=== PATIENT | female | born 1995 | race Caucasian/White ===

== ENCOUNTER 2016-12-23 17:52 | Emergency (ER) | payer SELFPAY ==
[~2016-12-23] VITALS: Ht 162.6 cm; Wt 51.8 kg
[2016-12-23 17:55] VITALS: BP 134/84
== END 2016-12-23 19:23 | disposition home or self-care (01) ==
LOC: ED 18:45
DX: K02.9 Dental caries, unspecified (principal)
CPT/HCPCS: 99283

== ENCOUNTER 2019-02-25 14:21 | Emergency (ER) | payer SELFPAY ==
[~2019-02-25] VITALS: Ht 167.6 cm; Wt 67.0 kg
[2019-02-25 14:34] VITALS: BP 125/83
--- NOTE | 2019-02-25 15:34 | NUR ---
Patient/Caregiver given discharge instructions and they have confirmed that they understand the instructions. Patient ambulatory with steady gait.
== END 2019-02-25 15:36 | disposition home or self-care (01) ==
LOC: ED 15:30
DX: K08.89 Other specified disorders of teeth and supporting structures (principal); F17.210 Nicotine dependence, cigarettes, uncomplicated
CPT/HCPCS: 99283

== ENCOUNTER 2019-05-13 13:39 | Emergency (ER) | payer MEDICAID ==
[~2019-05-13] VITALS: Ht 170.2 cm; Wt 64.7 kg
[2019-05-13] MEDS ORDERED: SODIUM CHLORIDE FLUSH 10ML SYR IVF ONE (14:30)
[2019-05-13] MEDS ORDERED: SODIUM CHLORIDE 0.9% 1,000ML IVBOLUS ONE (14:30)
[2019-05-13] MEDS ORDERED: CLINDAMYCIN PMX 600MG/50ML 50 ML IVPB ONE (14:30)
--- NOTE | 2019-05-13 14:44 | NUR ---
IV PLACED, LABS AND ONE SET BLOOD CULTURES DRAWN, FLUIDS RUNNING PER MAR. AWAITING SECOND SET BC TO BE DRAWN. FRIEND AT BEDSIDE. CALL TAMANNA GREY REACH
[2019-05-13] MEDS ORDERED: CLINDAMYCIN PMX 600MG/50ML 50 ML ONE (15:07)
[2019-05-13 15:14] LABS: ANION GAP 7 mmol/L (5-15); CALCIUM 9.5 mg/dL (8.5-10.1); CHLORIDE 105 mmol/L (98-107); CREATININE 1.05 mg/dL (0.55-1.02)
--- NOTE | 2019-05-13 15:19 | NUR ---
both blood cultures drawn before abx
[2019-05-13 15:20] VITALS: BP 133/85
[2019-05-13 15:30] LABS: BASOPHILS # (AUTO) 0.03 x10^3/uL (0-0.1); BASOPHILS % (AUTO) 0 % (0-1); EOSINOPHILS # (AUTO) 0.14 x10^3/uL (0-0.4); EOSINOPHILS % (AUTO) 2 % (1-7); LYMPHOCYTES % (AUTO) 21 % (22-44); MD NO; MEAN CORPUSCULAR HEMOGLOBIN 29.9 pg (27.0-34.8); MEAN CORPUSCULAR HGB CONC 33.7 g/dL (32.4-35.8); MEAN CORPUSCULAR VOLUME 88.6 fL (80-100); MEAN PLATELET VOLUME 9.3 fL (7.4-10.4); MONOCYTES # (AUTO) 0.75 x10^3/uL (0.2-0.8); MONOCYTES % (AUTO) 9 % (2-9); NEUTROPHILS # (AUTO) 5.58 x10^3/uL (1.8-6.8); NEUTROPHILS % (AUTO) 68 % (42-75); PLATELET COUNT 371 x10^3/uL (130-400); RED BLOOD COUNT 4.97 x10^6/uL (3.82-5.3); RED CELL DISTRIBUTION WIDTH 14.2 % (9.6-15.2)
== END 2019-05-13 16:06 | disposition home or self-care (01) ==
LOC: ED 15:54
DX: L03.113 Cellulitis of right upper limb (principal); F17.210 Nicotine dependence, cigarettes, uncomplicated
CPT/HCPCS: 36415; 80048; 85025; 87040; 96365; 99284; J7030

== ENCOUNTER 2019-06-04 22:49 | Emergency (ER) | payer MEDICAID ==
[~2019-06-04] VITALS: Ht 170.2 cm; Wt 67.3 kg
[2019-06-04] MEDS ORDERED: DIPHENHYDRAMINE 50 MG CAPSULE ONE (23:19)
[2019-06-04] MEDS ORDERED: DEXAMETHASONE 4 MG TABLET ONE (23:19)
[2019-06-04] MEDS ORDERED: FAMOTIDINE 20 MG TABLET ONE (23:20)
--- NOTE | 2019-06-04 23:28 | NUR ---
Pt medicated per MAY. Presents with rash to bilat arms and back. Also states mild R eye swelling. Pt states this has been intermittent for 1 month. No s/s of acute resp distress. Pt to be d/c home.
[2019-06-04] MEDS ORDERED: DEXAMETHASONE 4 MG TABLET PO ONE (23:30)
[2019-06-04] MEDS ORDERED: FAMOTIDINE 20 MG TABLET PO ONE (23:30)
[2019-06-04] MEDS ORDERED: DIPHENHYDRAMINE 25 MG CAPSULE PO ONE (23:30)
[2019-06-04 23:46] VITALS: BP 121/79
== END 2019-06-04 23:48 | disposition home or self-care (01) ==
LOC: ED 23:00
DX: L23.9 Allergic contact dermatitis, unspecified cause (principal); F17.200 Nicotine dependence, unspecified, uncomplicated
CPT/HCPCS: 99284; Q0163

== ENCOUNTER 2019-06-29 20:58 | Emergency (ER) | payer MEDICAID ==
[~2019-06-29] VITALS: Ht 170.2 cm; Wt 64.5 kg
[2019-06-29 21:05] VITALS: BP 139/80
--- NOTE | 2019-06-29 21:27 | NUR ---
Pt here for vaginal d/c of cheese like apperance. Pt reports has been present for 2 days with no relief and painful urination. Pt reports one partner but does have unprotected sex with him.
[2019-06-29] MEDS ORDERED: FLUCONAZOLE 50 MG TABLET PO ONE (21:30)
[2019-06-29] MEDS ORDERED: FLUCONAZOLE 100 MG TABLET ONE (21:40)
[2019-06-29 22:09] LABS: HCG UR SG 1.036 (1.003-1.030)
[2019-06-29 22:13] LABS: CULTURE INDICATED? YES; MICROSCOPIC INDICATED
--- NOTE | 2019-06-29 22:35 | NUR ---
Patient/Caregiver given discharge instructions and they have confirmed that they understand the instructions. Patient ambulatory with steady gait.
--- NOTE | 2019-06-29 22:51 | NUR ---
Patient/Caregiver given discharge instructions and they have confirmed that they understand the instructions. Patient ambulatory with steady gait.
== END 2019-06-29 22:52 | disposition home or self-care (01) ==
LOC: ED 21:15
DX: B37.3 Candidiasis of vulva and vagina (principal); F15.10 Other stimulant abuse, uncomplicated; F17.210 Nicotine dependence, cigarettes, uncomplicated; Z72.9 Problem related to lifestyle, unspecified; Z87.442 Personal history of urinary calculi
CPT/HCPCS: 81001; 81025; 87086; 87491; 87591; 99283; 99406

== ENCOUNTER 2019-07-20 01:25 | Emergency (ER) | payer MEDICAID ==
[~2019-07-20] VITALS: Ht 170.2 cm; Wt 66.0 kg
[2019-07-20 01:27] VITALS: BP 151/94
--- NOTE | 2019-07-20 01:39 | NUR ---
PT AMBULATES FROM TRIAGE TO LOBBY WITH STEADY GAIT. Addendum: 07/20/19 at 0140 by MYORK PT AMBULATES FROM TRIAGE TO ROOM WITH STEADY GAIT. PT RESTING IN [facility] AT THIS TIME; AWAITING ERP.
[2019-07-20] MEDS ORDERED: LIDOCAINE-MPF 1%, 5ML ONE (01:43)
[2019-07-20] MEDS ORDERED: IBUPROFEN 600 MG TABLET PO ONE (02:00)
[2019-07-20] MEDS ORDERED: LIDOCAINE 1%, 10ML INFIL ONE (02:00)
--- NOTE | 2019-07-20 02:12 | NUR ---
PT MEDICATED FOR PAIN PER MAR. PT DENIES ANY OTHER NEEDS AT THIS TIME. CALL LIGHT IS WITHIN REACH. WILL CONTINUE TO MONITOR.
--- NOTE | 2019-07-20 02:50 | NUR ---
PT D/C WITH D/C SUMMARY AND SCRIPTS. ALL QUESTIONS ANSWERED. PT AMBULATES TO REGISTATION DESK WITH STEADY GAIT FOR D/C HOME. PT DENIES ANY OTHER NEEDS PERTAINING TO THIS VISIT.
== END 2019-07-20 02:53 | disposition home or self-care (01) ==
LOC: ED 02:52
DX: K04.7 Periapical abscess without sinus (principal); K08.89 Other specified disorders of teeth and supporting structures
CPT/HCPCS: 41800; 87070; 87147; 87205; 99283; 99284

== ENCOUNTER 2020-09-11 23:10 | Emergency (ER) | payer SELFPAY ==
[~2020-09-11] VITALS: Ht 170.2 cm; Wt 75.0 kg
[2020-09-11 23:27] VITALS: BP 138/83
--- NOTE | 2020-09-12 00:08 | NUR ---
CC OF UPPER LEFT MOUTH PAIN AND "ITCHY BUMPS EVERYWHERE". PAIN IN MOUTH STARTED YESTERDAY. LAST SAW DENTIST 1 YR AGO. HAS HAD RASH FOR OVER A YEAR, APPEARS WHEN "STAYING AT A FRIENDS HOUSE", HAS PETS. HAS BEEN WORKED UP FOR BED BUGS IN PAST, ALTHOUGH NO OTHER PEOPLE IN HOUSE HAVE HAD ISSUES.
== END 2020-09-12 00:37 | disposition home or self-care (01) ==
LOC: ED 09-12 00:10
DX: T78.49XA Other allergy, initial encounter (principal); K08.89 Other specified disorders of teeth and supporting structures; R21 Rash and other nonspecific skin eruption; X58.XXXA Exposure to other specified factors, initial encounter
CPT/HCPCS: 99283

== ENCOUNTER 2020-10-15 11:35 | Emergency (ER) | payer SELFPAY ==
[~2020-10-15] VITALS: Ht 172.7 cm; Wt 74.7 kg
--- NOTE | 2020-10-15 12:30 | NUR ---
PCXR COMPLETE/RESULTED. LABS DRAWN, AWAITING RESULTS.
[2020-10-15 12:59] LABS: BASOPHILS % (AUTO) 1 % (0-1); EOSINOPHILS % (AUTO) 1 % (1-7); LYMPHOCYTES % (AUTO) 16 % (22-44); MEAN CORPUSCULAR HEMOGLOBIN 29.9 pg (27.0-34.8); MEAN CORPUSCULAR HGB CONC 33.9 g/dL (32.4-35.8); MEAN PLATELET VOLUME 8.2 fL (7.4-10.4); MONOCYTES % (AUTO) 12 % (2-9); NEUTROPHILS % (AUTO) 70 % (42-75); PLATELET COUNT 318 x10^3/uL (130-400); RED BLOOD COUNT 4.42 x10^6/uL (3.82-5.3); RED CELL DISTRIBUTION WIDTH 14.4 % (9.6-15.2)
--- NOTE | 2020-10-15 13:47 | NUR ---
CONTINUE TO AWAIT LAB RESULTS.
[2020-10-15 13:53] LABS: ALBUMIN 3.5 g/dL (3.4-5.0); ANION GAP 4 mmol/L (5-15); CALCIUM 8.6 mg/dL (8.5-10.1); CHLORIDE 108 mmol/L (98-107); CREATININE 0.82 mg/dL (0.55-1.02)
[2020-10-15 14:19] VITALS: BP 120/74
== END 2020-10-15 14:21 | disposition home or self-care (01) ==
LOC: ED 13:25
DX: R19.7 Diarrhea, unspecified (principal); R05 Cough; R11.0 Nausea; R06.02 Shortness of breath
CPT/HCPCS: 36415; 71045; 80048; 82040; 85025; 99284